=== PATIENT | male | born 1985 | race Hispanic/Latino ===

== ENCOUNTER 2018-09-01 17:40 | Inpatient (IN) | payer BC ==
[~2018-09-01] VITALS: Ht 170.2 cm; Wt 81.6 kg
[2018-09-01] MEDS ORDERED: SODIUM CHLORIDE 0.9% 1000ML 1,000 ML IV STA (17:56)
[2018-09-01] MEDS ORDERED: METRONIDAZOLE 500MG/NS 100ML 100 ML IV ONE (18:30)
[2018-09-01] MEDS ORDERED: MORPHINE SULFATE INJ 4 MG/ML INJ 1ML IV ONE (18:30)
[2018-09-01] MEDS ORDERED: ONDANSETRON HCL INJ 2MG/ML 2ML 2 MG/ML VIAL IV ONE (18:30)
[2018-09-01] MEDS ORDERED: CEFEPIME 1GM/NS 0.9% 50 ML 50 ML IV SCH (18:30)
[2018-09-01] MEDS ORDERED: IBUPROFEN 800MG/ 250ML 250 ML IV ONE (18:30)
[2018-09-01 19:26] LABS: BASOPHILS % 0.2 % (0.0-1.0); EOSINOPHILS # (AUTO) 0.1 (0.0-0.4); EOSINOPHILS % 0.7 % (0.0-6.0); HEMATOCRIT 44.5 % (38.2-49.6); HEMOGLOBIN 15.2 g/dL (14.0-18.0); LYMPHOCYTES % 6.4 % (18.0-39.1); MEAN CORPUSCULAR HEMOGLOBIN 29.1 pg (28-32); MEAN CORPUSCULAR HGB CONC 34.2 g/dL (31-35); MEAN CORPUSCULAR VOLUME 85.1 fL (81-99); MONOCYTES # (AUTO) 1.2 (0.2-0.8); MONOCYTES % 7.6 % (4.4-11.3); NEUTROPHILS # (AUTO) 13.7 (2.1-6.9); NEUTROPHILS % 84.5 % (38.7-80.0); PLATELET COUNT 166 x10e3/uL (140-360); RED BLOOD COUNT 5.23 x10e6/uL (4.3-5.7); RED CELL DISTRIBUTION WIDTH 12.3 % (11.7-14.4)
[2018-09-01 19:29] LABS: BILIRUBIN,URINE NEGATIVE (NEGATIVE); CLARITY,URINE CLEAR (CLEAR); COLOR,URINE YELLOW (YELLOW); KETONES,URINE TRACE (NEGATIVE); LEUKOCYTE ESTERASE ,URINE NEGATIVE (NEGATIVE); NITRITE,URINE NEGATIVE (NEGATIVE); PROTEIN,URINE DIPSTICK 1+ (NEGATIVE); URINE UROBILINOGEN 0.2 mg/dL (0.2 - 1)
[2018-09-01 19:47] LABS: BACTERIA,URINE RARE /HPF; WBC,URINE (MAN) 0-5 /HPF (0-5)
[2018-09-01 19:48] LABS: ALBUMIN 4.5 g/dL (3.5-5.0); ALBUMIN/GLOBULIN RATIO 1.5 (0.8-2.0); ANION GAP 14.4 mmol/L (8-16); CALCIUM 9.9 mg/dL (8.4-10.2); CREATININE, SERUM 1.56 mg/dL (0.72-1.25); POTASSIUM 3.4 mmol/L (3.5-5.1)
[2018-09-01 19:48] LABS: EPITHELIAL CELLS,URINE RARE /LPF
--- NOTE | 2018-09-01 20:24 | Diagnostic Imaging Report ---
EXAMINATION: CT of the abdomen and pelvis with contrast. TECHNIQUE: Helical CT images of the abdomen and pelvis were performed from the lung bases to the lesser trochanters after the intravenous administration of 100 cc of Omnipaque 300 and the oral administration of Redicat. Coronal and sagittal reformatted images were obtained.Dose modulation, iterative reconstruction, and/or weight based adjustment of the mA/kV was utilized to reduce the radiation dose to as low as reasonably achievable. COMPARISON: None. CLINICAL HISTORY:Abdominal pain DISCUSSION: ABDOMEN/PELVIS: LOWER THORAX:Unremarkable. HEPATOBILIARY: No focal hepatic lesions. No intra-or extrahepatic biliary ductal dilation. The gallbladder is normal. SPLEEN: No splenomegaly. PANCREAS: No focal masses or ductal dilatation. ADRENALS: No adrenal nodules. KIDNEYS/URETERS: No hydronephrosis, stones, or solid mass lesions. PELVIC ORGANS/BLADDER: The bladder is normal. PERITONEUM/RETROPERITONEUM: No free air or fluid. LYMPH NODES: No intra-abdominal, retroperitoneal, pelvic or inguinal lymphadenopathy. VESSELS: The celiac trunk,superior and inferior mesenteric and bilateral renal arteries are patent The portal, superior mesenteric and splenic veins are patent. GI TRACT: Dilated appendix measuring 2 cm with appendicolith and surrounding inflammatory change. No abscess or perforation. Air distally within the appendix. BONES AND SOFT TISSUE: No bony destructive lesions. No soft tissue abnormalities. IMPRESSION: Acute appendicitis. No abscess. Discussed with Dr. Harris 819 pm. Signed by: Dr. Ben Altman M.D. on 09/01/2018 8:20 PM
[2018-09-01] MEDS ORDERED: METRONIDAZOLE 500MG/NS 100ML 100 ML IV SCH (20:30)
[2018-09-01] MEDS ORDERED: CEFTRIAXONE SOD 2 GM/NS 100 ML 100 ML IV SCH (20:30)
[2018-09-01] MEDS ORDERED: SODIUM CHLORIDE 0.9% 1000ML 1,000 ML IV SCH (20:36)
[2018-09-01] MEDS ORDERED: ONDANSETRON HCL INJ 2MG/ML 2ML 2 MG/ML VIAL IV PRN (20:45)
[2018-09-01] MEDS ORDERED: ACETAMINOPHEN 1000 MG/100 ML IV PRN (20:45)
[2018-09-01] MEDS ORDERED: HYDROMORPHONE 1MG/1ML INJ IV PRN (20:45)
[2018-09-01] MEDS: KCL 20MEQ/.9 SOD CHL 1,000 ML IV SCH (21:25)
[2018-09-01] MEDS ORDERED: CEFTRIAXONE SOD 1 GM/NS 50 ML 100 ML IV SCH (21:30)
--- OUTSIDE RECORDS SUMMARY | 2018-09-01 21:45 | XMS REPORT ---
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 Allergies, Adverse Reactions, Alerts This patient has no known allergies or adverse reactions. Medications This patient has no known medications. Results Test Description Test Time Test Comments Text Results Atomic Results Result Comments CT ABDOMEN/PELVIS W 2018-09-01 20:17:00 [place] [address] Patient Name: CHERELLE KAPADIA MR #: [id number] : 1985 Age/Sex: 32/M Req #: [id number] Adm Physician: Ordered by: KENNEDY HENNING MEDICAL ASSISTING PROGRAM DIRECTOR Report #: [id number] Location: ER Room/Bed: Procedure: [id number] CT/CT ABDOMEN/PELVIS W Exam Date: Exam Time: REPORT STATUS: Signed EXAMINATION: CT of the abdomen and pelvis with contrast. TECHNIQUE: Helical CT images of the abdomen and pelvis were performed from the lung bases to the lesser trochanters after the intravenous administration of 100 cc of Omnipaque 300 and the oral administration of Redicat. Coronal and sagittal reformatted images were obtained.Dose modulation, iterative reconstruction, and/or weight based adjustment of the mA/kV was utilized to reduce the radiation dose to as low as reasonably achievable. COMPARISON: None. CLINICAL HISTORY:Abdominal pain DISCUSSION: ABDOMEN/PELVIS: LOWER THORAX:Unremarkable. HEPATOBILIARY: No focal hepatic lesions. No intra-or extrahepatic biliary ductal dilation. The gallbladder is normal. SPLEEN: No splenomegaly. PANCREAS: No focal masses or ductal dilatation. ADRENALS: No adrenal nodules. KIDNEYS/URETERS: No hydronephrosis, stones, or solid mass lesions. PELVIC ORGANS/BLADDER: The bladder is normal. PERITONEUM/RETROPERITONEUM: No free air or fluid. LYMPH NODES: No intra-abdominal, retroperitoneal, pelvic or inguinal lymphadenopathy. VESSELS: The celiac trunk,superior and inferior mesenteric and bilateral renal arteries are patent The portal, superior mesenteric and splenic veins are patent. GI TRACT: Dilated appendix measuring 2 cm with appendicolith and surrounding inflammatory change. No abscess or perforation. Air distally within the appendix. BONES AND SOFT TISSUE: No bony destructive lesions. No soft tissue abnormalities. IMPRESSION: Acute appendicitis. No abscess. Discussed with Dr. Harris 819 pm. Signed by: Dr. Latoya Knott M.D. on 09/01/2018 8:20 PM Dictated By: LTAOYA KNOTT MD 19 Transcribed By: PING on 09/01/182019 COPY TO: KENNEDY HENNING NP
--- NOTE | 2018-09-01 21:46 | Pre Op History & Physical ---
CHIEF COMPLAINT: Right lower quadrant pain. HISTORY OF PRESENT ILLNESS: The patient is a pleasant 32-year-old male, otherwise healthy, admitted complaining of abdominal pain since the morning of Monday. The pain got worse, came to the emergency room where he had a CT scan that revealed acute appendicitis, no evidence of perforation or abscess formation. PAST MEDICAL HISTORY: Unremarkable. PAST SURGICAL HISTORY: No previous surgeries. MEDICATIONS: He has not taken any medicines. SOCIAL HISTORY: The patient drinks socially. Does not smoke. FAMILY HISTORY: Noncontributory. ALLERGIES: NO KNOWN ALLERGIES. REVIEW OF SYSTEMS: As per history of present illness. No recent travel. No similar episodes of the pain in the past. Denies any diarrhea, any vomiting or chills. PHYSICAL EXAMINATION: GENERAL: Reveals a 32-year-old male, in no acute distress. VITAL SIGNS: Temperature is 101. Vital signs are stable. HEAD, EYES, EARS, NOSE, AND THROAT: Reveals no acute process. LUNGS: Clear. HEART: Reveals regular sinus rhythm. ABDOMEN: Reveal tenderness in the right lower quadrant. No rebound. Mildly distended. EXTREMITIES: Reveal no clubbing, cyanosis, or edema. NEUROLOGIC: Nonfocal. SKIN: Normal turgor. LABORATORY DATA: Reveal a white count of 16,000 with a potassium of 3.4. ASSESSMENT: 1. Acute appendicitis, nonperforated. 2. Mild hypokalemia. PLAN: The plan is to proceed with intravenous hydration, IV antibiotics. Replace the potassium and proceed with laparoscopic appendectomy tomorrow. The procedure, indication, benefits, and risks have been discussed with him and his family and they agreed. MD PAULETTE Sharma/SHANTI /[id number]
[2018-09-01] MEDS: HYDROMORPHONE 2MG/ML 2 MG/ML ML IV PRN (21:56)
[2018-09-01] MEDS: METRONIDAZOLE 500MG/NS 100ML 100 ML IV SCH (23:12)
[2018-09-02] VITALS (10 sets, daily range): BP systolic 118–131; BP diastolic 69–81
--- NOTE | 2018-09-02 02:48 | NUR ---
received report. pt resting. no ss of distress noted. call herron within reach.
[2018-09-02] MEDS: HYDROMORPHONE 2MG/ML 2 MG/ML ML IV PRN ×4 (04:02→20:16)
[2018-09-02] MEDS: METRONIDAZOLE 500MG/NS 100ML 100 ML IV SCH ×3 (05:43→17:31)
[2018-09-02] MEDS: KCL 20MEQ/.9 SOD CHL 1,000 ML IV SCH ×3 (06:12→21:40)
--- NOTE | 2018-09-02 06:13 | NUR ---
pt showered with hibiclens. linen changed. no distress noted. call herron within reach.
[2018-09-02 06:25] LABS: BASOPHILS % 0.1 % (0.0-1.0); EOSINOPHILS % 0.1 % (0.0-6.0); HEMATOCRIT 42.2 % (38.2-49.6); HEMOGLOBIN 14.1 g/dL (14.0-18.0); LYMPHOCYTES # (AUTO) 0.9 (1.0-3.2); LYMPHOCYTES % 5.9 % (18.0-39.1); MEAN CORPUSCULAR HEMOGLOBIN 28.9 pg (28-32); MEAN CORPUSCULAR HGB CONC 33.4 g/dL (31-35); MEAN CORPUSCULAR VOLUME 86.5 fL (81-99); MONOCYTES % 6.9 % (4.4-11.3); NEUTROPHILS # (AUTO) 12.9 (2.1-6.9); NEUTROPHILS % 86.1 % (38.7-80.0); PLATELET COUNT 146 x10e3/uL (140-360); RED BLOOD COUNT 4.88 x10e6/uL (4.3-5.7); RED CELL DISTRIBUTION WIDTH 12.3 % (11.7-14.4)
[2018-09-02] MEDS ORDERED: SODIUM CHLORIDE 0.9% 50ML 50 ML ONE (06:45)
[2018-09-02] MEDS ORDERED: IOPAMIDOL 370 MG/ML 200 ML INFUS..BTL INJ ONE (06:45)
[2018-09-02 06:51] LABS: ALANINE AMINOTRANSFERASE 21 IU/L (0-55); ALBUMIN 3.8 g/dL (3.5-5.0); ALBUMIN/GLOBULIN RATIO 1.3 (0.8-2.0); ALKALINE PHOSPHATASE 60 IU/L (40-150); ANION GAP 13.4 mmol/L (8-16); BLOOD UREA NITROGEN 12 mg/dL (7-26); BUN/CREATININE RATIO 9 (6-25); CALCIUM 9.2 mg/dL (8.4-10.2); CARBON DIOXIDE 26 mmol/L (22-29); CHLORIDE 104 mmol/L (98-107); CREATININE, SERUM 1.28 mg/dL (0.72-1.25); EST GLOMERULAR FILTRATION RATE > 60 ML/MIN (60-); GLUCOSE 112 mg/dL (74-118); POTASSIUM 3.4 mmol/L (3.5-5.1); SODIUM 140 mmol/L (136-145)
[2018-09-02] MEDS ORDERED: BUPIVACAINE 0.25%/EPI 30ML SDV INJ ONE (07:38)
--- NOTE | 2018-09-02 08:16 | NUR ---
The pt. is gowned and ready for surgery and is in route at this time to O R. in stale condition.
[2018-09-02] MEDS ORDERED: HYDROGEN PEROXIDE 120 ML BTL ONE (10:00)
[2018-09-02] MEDS ORDERED: NEOSTIGMINE 1 MG/ML 10ML VIAL ONE (10:06)
[2018-09-02] MEDS ORDERED: ONDANSETRON HCL INJ 2MG/ML 2ML 2 MG/ML VIAL IV PRN (10:15)
[2018-09-02] MEDS: CEFTRIAXONE SOD 2 GM/NS 100 ML 100 ML IV SCH ×2 (10:35→10:51)
--- NOTE | 2018-09-02 11:15 | NUR ---
The pt. has returned to the unit from surgery s/p Appendectomy this morning. The pt. is responsive to verbal stimuli and reports pain at this time. He has o2 intact at 2l n/c due to pain med (dilaudid) and was advised of side effects of the drug. There are family members at the bedside. There is a drain to right side. Vitals are in process at this time.
[2018-09-02] MEDS ORDERED: METRONIDAZOLE 500MG/NS 100ML 100 ML IV SCH (12:00)
--- NOTE | 2018-09-02 12:09 | Operative Report ---
DATE OF PROCEDURE: 09/02/2018 SURGEON: Thor Galicia MD PREOPERATIVE DIAGNOSIS: Acute appendicitis. POSTOPERATIVE DIAGNOSIS: Acute gangrenous appendicitis. PROCEDURE PERFORMED: Laparoscopic appendectomy. SENIOR PRINCIPAL ARCHITECT: NUNU Andrews. ESTIMATED BLOOD LOSS: Minimal. DRAINS: 110 mm flat Shelton-Cordero drains. COMPLICATION: None. INDICATION AND FINDINGS: The patient is a 32-year-old male admitted complaining of several-day history of abdominal pain localizing to the right lower quadrant. CT scan revealed appendicitis. INTRAOPERATIVE FINDINGS: Acute gangrenous appendicitis. The appendix was gangrenous in its entirety except for junction of the cecum and at that point we were able to staple the appendix. There were inflammatory changes in the area of the pelvis and right gutter consistent with peritonitis in addition to the gangrene. DESCRIPTION OF PROCEDURE: With the patient lying on the operative table in supine position and after administered general anesthesia, he was prepped and draped for laparoscopic appendectomy. The procedure was begun by establishing the pneumoperitoneum in the umbilical site after the saline drop test was performed and 11/12 trocar was placed in the location then we placed total of 3 extra 5 mm trocars were necessary in order to mobilize the appendix the first trocar and using 5 mm size diameter was placed in the right upper quadrant midclavicular line, the second was placed between the umbilicus and the first trocar lateral to the midline and the last trocar 5 mm also was placed in the right lower quadrant. We performed general laparoscopy with the findings noted above. We were carefully able to mobilize the appendix from the wall and the pelvis and then we transected the mesoappendix with an Endo-SHANTA stapler white load. Once we got to the point of the junction of the cecum to a point where the appendix was viable and was able to be transected, we did that flush with cecum using the Endo SHANTA with a blue load. We placed through an endobag and removed it through the umbilical port and then we copiously irrigated the operative field in the area of the right gutter, pelvis, and the appendiceal base until the effluent fluid was clear. We ascertained there was no bowel injury, no leak of the staple line or bleeding at that point then we were satisfied. We placed 10 mm flat Shelton-Cordero drain and brought it out through the right lower quadrant trocar placed it in the right gutter and appendiceal bed and part of the pelvis and then secured there with 3-0 silk and connected to self suction. After we did that, we went ahead and we released the pneumoperitoneum and then closed the wounds after irrigation with peroxide with 0 Vicryl for the umbilical fascia and then marco for the skin of all the ports. Sterile dressing was applied. The patient tolerated the procedure well, taken to recovery room in stable condition. MD PAULETTE Sharma/SHANTI /[id number]
[2018-09-02] MEDS ORDERED: MIDAZOLAM HCL 2 MG/2 ML VIAL ONE (13:22)
[2018-09-02] MEDS ORDERED: FENTANYL CITRATE/PF 100MCG/2 ML INJ ONE (13:22)
[2018-09-02] MEDS: ACETAMINOPHEN 325 MG TAB PO PRN ×2 (16:23→20:50)
--- NOTE | 2018-09-02 16:30 | NUR ---
The pt. had temp elevation and was medicated for same. He and family were instructed to use the I. S. frequently while awake.
--- NOTE | 2018-09-02 17:09 | NUR ---
Nutrition Screen Note RD Recommendation for Physician: Advance diet as tolerated to regular Plan of Care: RD following, monitoring for tolerance and adequacy Nutrition reason for involvement: Nutrition Risk Trigger - MST Primary Diagnose(s): Acute appendicitis PMH: None Ht:67 in Wt:180lb BMI:28.2 kg/m2 IBW:148lb RD Assessment: (09/02/2018) Chart reviewed. Labs and meds reviewed. Initial encounter with pt. Pt was eating well [employer] COMPENSATION MAGISTRATE. Pt denies any N,V,D nor has any difficulty chewing or swallowing. No wt changes. Normal BM. Current Diet: Clear liquid Malnutrition Evaluation (09/02/2018) The patient does not meet criteria for a specified degree of malnutrition at this time. Will re-evaluate at follow-up as appropriate. Diet Education Needs Assessment: Diet education not indicated. Nutrition Care Level: Low Signed: Magnus Colvin RD, LD, [facility]
--- NOTE | 2018-09-02 19:00 | NUR ---
RECEIVED PATIENT IN BEDSIDE REPORT. PAIN REPORTED AT 6/10 AT THIS TIME. PATIENT AMBULATED WITH 'S ASSISTANCE. NO S&S OF DISTRESS NOTED. BED LOCKED IN LOWEST POSITION, SIDE RAILS UPX2, CALL LIGHT IN REACH.
[2018-09-02] MEDS ORDERED: LIDOCAINE HCL 2% LOCAL INJ 5 ML SDV VIAL INJ ONE (19:43)
[2018-09-02] MEDS ORDERED: GLYCOPYRROLATE INJ 1MG/ 5 ML SYR ONE (19:43)
[2018-09-02] MEDS ORDERED: DEXAMETHASONE SOD PHOS INJ 4 MG/ML VIAL ONE (19:43)
[2018-09-02] MEDS ORDERED: ROCURONIUM BROMIDE 10 MG/ML 5ML VIAL ONE (19:43)
[2018-09-02] MEDS ORDERED: ONDANSETRON HCL INJ 2MG/ML 2ML 2 MG/ML VIAL ONE (19:43)
[2018-09-02] MEDS ORDERED: EYE LUBRICANT OPTH OINT 3.5GM TUBE OP ONE (19:43)
[2018-09-02] MEDS ORDERED: PROPOFOL IV EMULSION 10 MG/ML 20 ML VIAL ONE (19:43)
[2018-09-02] MEDS ORDERED: NEOSTIGMINE 5 MG/5ML SYR ONE (19:43)
[2018-09-02] MEDS ORDERED: SEVOFLURANE INHAL SOLN 250 ML PEN BTL ONE (19:43)
[2018-09-03] VITALS (8 sets, daily range): BP systolic 108–150; BP diastolic 66–90
[2018-09-03] MEDS: METRONIDAZOLE 500MG/NS 100ML 100 ML IV SCH ×4 (01:24→17:02)
--- NOTE | 2018-09-03 04:50 | NUR ---
PATIENT AMBULATING IN HALLWAY WITH FAMILY MEMBER AT THIS TIME. STEADY GAIT NOTED.
[2018-09-03] MEDS: HYDROMORPHONE 2MG/ML 2 MG/ML ML IV PRN ×3 (05:45→15:18)
[2018-09-03 06:02] LABS: BASOPHILS % 0.1 % (0.0-1.0); EOSINOPHILS % 0.1 % (0.0-6.0); HEMATOCRIT 35.7 % (38.2-49.6); LYMPHOCYTES # (AUTO) 0.9 (1.0-3.2); LYMPHOCYTES % 9.4 % (18.0-39.1); MEAN CORPUSCULAR HEMOGLOBIN 29.2 pg (28-32); MEAN CORPUSCULAR HGB CONC 33.6 g/dL (31-35); MEAN CORPUSCULAR VOLUME 86.9 fL (81-99); MONOCYTES % 9.9 % (4.4-11.3); NEUTROPHILS % 80.1 % (38.7-80.0); PLATELET COUNT 115 x10e3/uL (140-360); RED BLOOD COUNT 4.11 x10e6/uL (4.3-5.7); RED CELL DISTRIBUTION WIDTH 12.4 % (11.7-14.4)
[2018-09-03 06:17] LABS: ANION GAP 8.5 mmol/L (8-16); BLOOD UREA NITROGEN 9 mg/dL (7-26); BUN/CREATININE RATIO 10 (6-25); CALCIUM 8.8 mg/dL (8.4-10.2); CARBON DIOXIDE 30 mmol/L (22-29); CHLORIDE 103 mmol/L (98-107); CREATININE, SERUM 0.87 mg/dL (0.72-1.25); EST GLOMERULAR FILTRATION RATE > 60 ML/MIN (60-); GLUCOSE 112 mg/dL (74-118); POTASSIUM 3.5 mmol/L (3.5-5.1); SODIUM 138 mmol/L (136-145)
[2018-09-03] MEDS: KCL 20MEQ/.9 SOD CHL 1,000 ML IV SCH ×3 (06:30→16:36)
--- NOTE | 2018-09-03 07:25 | NUR ---
PT RESTING IN BED COMFORTABLY AA0X3 PT STATES PT AT THIS TIME IS A / ON ABD WAS MEDICATED BY ABSTRACTOR ABOUT AN HOUR AGO PT IS S/P APPY, SITE IS COVERED WITH DRESSING AND TAPE DRY AND INTACT, ANEL DRAIN SECURED TO GOWN PT IS ON CLEAR LIQUID DIET AND ON IV FLUIDS TO THE RIGHT AC 20 WITH [id number] AT 125CC.HR SIT IS CLEAN AND DRY WILL CONTINUE TO MONITOR PT CLOSELY, SIDE RAILSX2, BED WHEELS LOCKED ,CALL LIGHT IS WITHIN EASY REACH, INSTRUCTED TO CALL FOR ASSISTANCE IF NEEDED
--- NOTE | 2018-09-03 11:35 | NUR ---
MD MAXINE MICHELE AND STATES PT CAN ADVANCE DIET TO FULL FOR LUNCH AND GI SOFT FOR DINNER ORDERS RECEIVED
--- NOTE | 2018-09-03 19:50 | NUR ---
ASSESSMENT DONE.NO RESP.DISTRESS.NO PAIN VOICED.INCISION SITE DRY.BED LOCKED AND IN LOWEST POSITION.PHONE AND CALL LIGHT WITHIN REACH.INSTRUCTED TO CALL FOR ASSISTANCE NEEDED.
[2018-09-04] VITALS (7 sets, daily range): BP systolic 113–139; BP diastolic 78–90
[2018-09-04] MEDS: ACETAMINOPHEN 325 MG TAB PO PRN (00:07)
[2018-09-04] MEDS: METRONIDAZOLE 500MG/NS 100ML 100 ML IV SCH ×5 (00:07→23:31)
[2018-09-04] MEDS: KCL 20MEQ/.9 SOD CHL 1,000 ML IV SCH (02:44)
--- NOTE | 2018-09-04 06:50 | NUR ---
REPORT GIVEN TO THE ONCOMING RN.WALKING ROUNDS DONE.STABLE CONDITION.
--- NOTE | 2018-09-04 07:20 | NUR ---
PT RESTING IN BED COMFORTABLY AA0X3 PT STATES DENIES PAIN AT THIS TIME PT IS S/P APPY, SITE IS COVERED WITH DRESSING AND TAPE DRY AND INTACT, ANEL DRAIN SECURED TO GOWN PT IS ON GI SOFT DIET AND ON IV FLUIDS TO THE RIGHT AC 20 WITH [id number] AT 125CC.HR IV SITE IS CLEAN AND DRY WILL CONTINUE TO MONITOR PT CLOSELY, SIDE RAILSX2, BED WHEELS LOCKED ,CALL LIGHT IS WITHIN EASY REACH, INSTRUCTED TO CALL FOR ASSISTANCE IF NEEDED
[2018-09-04] MEDS: CEFTRIAXONE SOD 2 GM/NS 100 ML 100 ML IV SCH (10:37)
--- NOTE | 2018-09-04 21:00 | NUR ---
Pt ambulates in the farmer way.tolerate the diet.Aaox4.assessment done.no resp.distress.no pain voiced.dressing is dry.neida drain is in place.bed locked and in lowest position.phone and call light within reach.instructed to call for assistance as needed.
[2018-09-05] VITALS: BP 126/77
[2018-09-05 04:15] VITALS: BP 120/62
[2018-09-05] MEDS: KCL 20MEQ/.9 SOD CHL 1,000 ML IV SCH (05:30)
[2018-09-05] MEDS: METRONIDAZOLE 500MG/NS 100ML 100 ML IV SCH ×3 (05:47→17:12)
--- NOTE | 2018-09-05 07:00 | NUR ---
Report given to the on coming rn.walking rounds done.stable condition.
[2018-09-05 07:43] VITALS: BP 126/86
[2018-09-05 10:03] VITALS: BP 126/86
[2018-09-05] MEDS: CEFTRIAXONE SOD 2 GM/NS 100 ML 100 ML IV SCH (11:00)
--- NOTE | 2018-09-05 11:13 | NUR ---
AMBULATING IN HALLWAY, STEADY GAIT,
[2018-09-05 11:34] VITALS: BP 127/81
[2018-09-05 16:11] VITALS: BP 110/82
--- NOTE | 2018-09-05 17:09 | NUR ---
MD Nerissa PATRICIA INTO SEE PT, DISCUSSED DISCHARGE INSTRUCTIONS, REMOVED ANEL DRAIN AND ABDOMINAL DRESSING, DRESSING APPLIED, SECURED WITH TAPE, PT TOLERATED WELL
[2018-09-05] MEDS ORDERED: AUGMENTIN 500-1 EACH PO (17:14)
[2018-09-05] MEDS ORDERED: TYLENOL WITH C1 EACH PO (17:15)
--- NOTE | 2018-09-05 17:56 | NUR ---
DISCHARGE INSTRUCTIONS REVIEWED, VERBALIZED UNDERSTANDING, AWAITING ANTIBIOTIC TO FINISH AND RIDE FOR DISCHARGE
--- NOTE | 2018-09-05 18:47 | NUR ---
PT AMBULATED OFF UNIT FOR DISCHARGE, NO CHANGE IN CONDITION, PCT AT SIDE
--- NOTE | 2018-09-05 19:20 | Discharge Summary ---
DISCHARGE DIAGNOSES: 1. Acute gangrenous appendicitis. 2. Pelvic peritonitis. PROCEDURE PERFORMED: Laparoscopic appendectomy and peritoneal lavage and debridement on 09/02/2018. HISTORY OF PRESENT ILLNESS AND HOSPITALIZATION COURSE: The patient is a pleasant 32-year-old male admitted complaining of abdominal pain for several days. Acute appendicitis: The patient was taken expeditiously to the emergency room and a laparoscopic appendectomy was performed. The appendix was gangrenous, partially liquified. There was pelvic peritonitis. Postoperative, the patient was given intravenous antibiotics and pain controlled with intravenous narcotics and oral pain medicines. His vital signs were monitored and his white count was serially checked until it return to normal. The patient was discharged home on 09/05/2018 in stable condition. He was afebrile, tolerating a regular diet well. He had a Shelton-Cordero drain that was removed on the day of discharge, his output was minimal and serous. The patient was discharged in satisfactory condition, tolerating a regular diet well. No fever. No abdominal pain except for incisional pain. He was given instruction, no work tolerance. MEDICATIONS ON DISCHARGE: 1. Augmentin 500 mg b.i.d. for a week. 2. Tylenol No.3 one p.o. every 4-6 hours p.r.n. for pain. DISCHARGE FOLLOWUP: The patient will be followed up in my office following discharge on Monday to remove marco. He has no work tolerance at this point. MD PAULETTE Sharma/SHANTI /[id number]
== END 2018-09-05 19:13 | disposition home or self-care (01) | DRG 853 ==
LOC: ER 17:40 → ERHOLD 21:42 → MED/SURG 22:22
PROVIDERS: ADMIT Surgery; ATTEND Surgery
PROC: 0DTJ4ZZ Resection of Appendix, Percutaneous Endoscopic Approach (ICD-10-PCS; principal; 2018-09-02 08:30)
DX: A41.9 Sepsis, unspecified organism (principal); K65.0 Generalized (acute) peritonitis; K35.31 Acute appendicitis with localized peritonitis and gangrene, without perforation; E87.6 Hypokalemia; F17.210 Nicotine dependence, cigarettes, uncomplicated; Z83.3 Family history of diabetes mellitus; Z82.49 Family history of ischemic heart disease and other diseases of the circulatory system; D72.810 Lymphocytopenia
CPT/HCPCS: 36415; 74177; 80048; 80053; 81001; 82150; 83605; 83690; 85025; 87040; 87086; 88304; 99284; C1766; J0692; J0696; J1100; J2001; J2250; J2270; J2405; J2710; J7030; Q9967